=== PATIENT | male | born 1975 | race Caucasian/White ===

== ENCOUNTER → 2016-08-14 | Outpatient (CLI) | payer OTHER | LOC: CAT 10:22 | DX: R10.9 Unspecified abdominal pain (principal) ==

== ENCOUNTER → 2018-12-13 | Outpatient (CLI) | payer BC ==
--- NOTE | 2018-12-13 09:05 | EXE ---
[facility] [place] [address] STRESS ECHOCARDIOGRAM Name: CHANDANA MCFADDEN Room #: REG [facility]#: [id number] ������������� Admission: 12/13/18 ������������� Attend Phys: Arnav Larkin MD Discharge: ��� ������������� ��� Date of : 73 Date of Service: 12/13/18904 �� Report #: [id number] �������� ��������������������������������������������[id number] THIS REPORT FOR: //name// APPROVED REPORT Study performed: 12/13/2018 07:59:47 Exam: Stress Echocardiogram Indication: Chest pain Patient Location: Out-Patient Stress Nurse: Rupa Flores RN Status: routine Ht: 6 ft 1 in Rhythm: NSR Medical History Medical History: CABG Allergies: No known drug allergies Procedure The patient underwent an Exercise Stress Test using the Steven Protocol. Blood pressure, heart rate, and EKG were monitored. An Echocardiogram was performed by geologic technician in four stages in quad fashion. At peak stress, four selected images were obtained and placed side by side with resting images for comparison. Stress Test Details Stress Test: Exercise stress testing was performed using a Steven protocol. HR Resting HR: 68 bpm Max Heart Rate (APMHR): 176 bpm Max HR Achieved: 176 bpm Target HR (85% APMHR): 149 bpm % of APMHR: 100 Recovery HR: 106 bpm HR response to stress: Normal HR response to stress BP Resting BP: 168/72 mmHg Max BP: 168/80 mmHg Recovery BP: 144/80 mmHg BP response to stress: Normal blood pressure response to stress. ECG Resting ECG: Sinus Rhythm [facility] [address] [place] [address] STRESS ECHOCARDIOGRAM Name: CHANDANA MCFADDEN Room #: REG [facility]#: [id number] ������������� Admission: 12/13/18 ������������� Attend Phys: Arnav Larkin MD Discharge: ��� ������������� ��� Date of : 73 Date of Service: 12/13/18 0905 �� Report #: [id number] �������� ��������������������������������������������[id number] Stress ECG: Sinus Rhythm, nonspecific ST-T abnormalities ST Change: Non-ischemic Clinical Reason for Termination: Completed protocol Stress Symptoms: Fatigue Exercise duration: 9 min 19 sec Highest Stage Achieved: Stage 4: 4.2 mph at 16% grade. Exercise capacity: 11.10 METs Pre-Stress Echo The resting Echocardiogram showed normal left ventricular contractility with an estimated Ejection Fraction of about 55-60%. The resting echocardiogram demonstrated normal wall motion in all wall segments. Normal wall motion in all segments on baseline images. Post-Stress Echo The stress Echocardiogram showed normal left ventricular contractility with an estimated Ejection Fraction of about >70%. Compared to rest, there were no stress-induced wall motion abnormalities. Normal augmentation of wall motion in all segments on post stress images. Clinical No clinical or ECG evidence for ischemia. Conclusion Clinical Response: Non-ischemic Exercise Capacity: Average Stress ECG Response: Non-ischemic Stress Echo Images: Non-ischemic The left ventricle is normal in size and wall thickness in both the rest and stress images. Other Information Study Quality: Adequate <Conclusion> The left ventricle is normal in size and wall thickness in both the rest and stress images. ��������������������������������������������� <ELECTRONICALLY SIGNED> ���������������������������������������� By: Arnav Larkin MD ��������������������������������������������� 12/13/18904 4 4 Arnav Larkin MD /INF
== END ==
LOC: CV 07:28
DX: R07.9 Chest pain, unspecified (principal); Z95.1 Presence of aortocoronary bypass graft

== ENCOUNTER → 2019-01-25 | Outpatient (CLI) | payer OTHER | LOC: CAT 12:02 | DX: R07.2 Precordial pain (principal); Z95.5 Presence of coronary angioplasty implant and graft ==

== ENCOUNTER → 2019-04-20 | Outpatient (CLI) | payer OTHER | LOC: MRI 08:29 | DX: M50.123 Cervical disc disorder at C6-C7 level with radiculopathy (principal); M48.02 Spinal stenosis, cervical region; M25.78 Osteophyte, vertebrae; M50.122 Cervical disc disorder at C5-C6 level with radiculopathy ==

== ENCOUNTER 2019-05-29 09:54 | Emergency (ER) | payer OTHER ==
[~2019-05-29] VITALS: Ht 185.4 cm; Wt 104.3 kg
[2019-05-29] MEDS ORDERED: ASA81BEC PO (10:08)
[2019-05-29] MEDS ORDERED: NEURONTIN300 MG PO (10:09)
[2019-05-29] MEDS ORDERED: MEDROLDOSEPACK PO (10:37)
[2019-05-29] MEDS ORDERED: CYCLOBENZAPRINE5 MG PO (10:37)
[2019-05-29] MEDS ORDERED: NORCO 10-325 T1 EAC1 PO (10:37)
[2019-05-29] MEDS ORDERED: VALIUM5 MG PO (12:38)
[2019-05-29 12:41] VITALS: BP 119/76
== END 2019-05-29 12:42 | disposition home or self-care (01) ==
LOC: ER 09:54
DX: M54.12 Radiculopathy, cervical region (principal); F41.9 Anxiety disorder, unspecified

== ENCOUNTER 2019-06-08 09:03 | Day surgery (SDC) | payer OTHER ==
[2019-06-07 12:28] LABS: ABSOLUTE NEUTROPHILS 7.2 thou/uL (1.4-8.2); BASOPHILS 0.4 % (0.0-2.0); EOSINOPHILS 1.1 % (0.0-3.0); HEMATOCRIT 48.4 % (42.0-52.0); HEMOGLOBIN 16.2 gm/dL (14.0-18.0); MCH 32.4 pg (26.0-34.0); MCHC 33.5 g/dL (28.0-37.0); MCV 96.9 fL (80.0-100.0); MONOCYTES 10.7 % (1.0-8.0); PLATELET COUNT 255 thou/uL (150-400); POLYS 69.8 % (36.0-66.0); RDW 14.2 % (10.5-14.5); WBC 10.4 thou/uL (4.0-11.0)
[2019-06-07 13:08] LABS: ALBUMIN 4.2 g/dL (3.4-5.0); CALCIUM 9.1 mg/dL (8.5-10.1); CREATININE 1.1 mg/dL (0.7-1.3); POTASSIUM 4.2 mmol/L (3.5-5.1); TOTAL BILIRUBIN 0.5 mg/dL (<0.1-1.0); TOTAL PROTEIN 7.8 g/dL (6.4-8.2)
[~2019-06-08] VITALS: Ht 185.4 cm; Wt 103.0 kg
[~2019-06-08 09:03] MED LIST: ASA81BEC PO; CYCLOBENZAPRINE5 MG PO; MEDROLDOSEPACK PO; NEURONTIN300 MG PO; NORCO 10-325 T1 EAC1 PO; PERCOCET 10-321 EAC1 PO; VALIUM5 MG PO
[2019-06-08 09:43] VITALS: BP 139/81
--- NOTE | 2019-06-08 11:13 | H ---
[facility] [place] [address] HISTORY AND PHYSICAL Name: CHANDANA MCFADDEN Room #: REG [facility].#: [id number] Admission: 06/08/19 Attend Phys: Soren Jones MD Discharge: Date of : 73 Report #: [id number] THIS REPORT FOR: //name// CC: Soren Coats DATE OF SERVICE: 06/08/2019 HISTORY OF PRESENT ILLNESS: The patient is a pleasant 44-year-old who is having difficulty with neck and left arm pain. He says most of his pain is in his arm. The pain radiates from his neck to the left scapula, biceps, and forearm. He has numbness and tingling in the thumb and index finger on the left hand. He has no pain in the right arm. He says his left arm feels weak. He said that the problem began in February and then he received a cervical epidural steroid injection, which helped him improve about 80%. He said that last Thursday, he had a haircut and his head was tilted back and he developed severe neck and left arm pain again. He rates his pain 9/10 at its worst. The pain is constant. There is no position that is comfortable for him. Stretches help him minimally. He did have another epidural steroid injection last week with very minimal relief for 1 day. He is currently taking Percocet, gabapentin, Valium and he has also been to the Emergency Room for this problem. MEDICATIONS: Prednisone, Percocet, gabapentin, Valium. ALLERGIES: BEES. PAST MEDICAL HISTORY: Coronary artery disease. PAST SURGICAL HISTORY: Left ACL repair, left wrist surgery, coronary artery bypass graft 2018, sternoplasty 2019. SOCIAL HISTORY: He is employed as a PA. . Nonsmoker. Rarely drinks alcohol. REVIEW OF SYSTEMS: A 12-point review of systems was performed and is noncontributory except that mentioned above. PHYSICAL EXAMINATION: GENERAL: Alert, pleasant, in no acute distress. HEENT: Normocephalic, atraumatic. NECK: Moderate tenderness with palpation of the posterior cervical region. SKIN: Warm and dry. MUSCULOSKELETAL: Cervical paraspinal muscle bulk is normal, cervical range of motion is restricted, normal range of motion of the upper extremities bilaterally. EXTREMITIES: No clubbing, cyanosis or edema. [address] [address] HISTORY AND PHYSICAL Name: CHANDANA MCFADDEN Room #: REG [facility]#: [id number] Admission: 06/08/19 Attend Phys: Soren Jones MD Discharge: Date of : 73 Report #: [id number] NEUROLOGIC: Alert and oriented x 3, normal recent and remote memory, strength is 5/5 in the upper and lower extremities except the left triceps is 4+/5, sensory was intact to light touch in the upper and lower extremities except decreased sensation in the left index finger, reflexes were present and symmetric in the upper and lower extremities bilaterally, normal gait. IMAGING: I reviewed a cervical MRI scan from 04/2019. On that study, there is left sided disk bulge and foraminal narrowing at C3-C4. At C6-C7, there is bilateral foraminal narrowing, slightly worse on the right. ASSESSMENT AND PLAN: Based on his exam, I believe the problems at C6-C7 on the left are responsible for his severe cervical radiculopathy. He has been referred and had a second cervical epidural steroid injection with no significant improvement. I spoke with him about anterior cervical surgery at C6-C7. We spoke about the technique, risk and expected postoperative course. He understands and would like to go ahead. We are going to make the arrangements. <ELECTRONICALLY SIGNED> By: Soren Jones MD 06/08/19 1113 1156 1218 Soren Jones MD /nt
[2019-06-08 20:21] VITALS: BP 127/86
[2019-06-09] VITALS: BP 119/85
[2019-06-09 00:05] VITALS: BP 119/85
[2019-06-09 03:05] VITALS: BP 126/88
[2019-06-09 07:40] VITALS: BP 126/75
[2019-06-09] MEDS ORDERED: TIZANIDINE4 MG/1 TA1 PO (10:29)
[2019-06-09] MEDS ORDERED: PERCOCET 10-321 EACH PO (10:29)
[2019-06-09 11:00] VITALS: BP 120/83
[2019-06-09 11:26] VITALS: BP 126/75
--- NOTE | 2019-06-27 15:51 | O ---
[facility] [place] [address] OPERATIVE REPORT Name: CHANDANA MCFADDEN Room #: DEP [facility].#: [id number] Admission: 06/08/19 Attend Phys: Soren Jones MD Discharge: 06/09/19 Date of : 73 Report #: [id number] THIS REPORT FOR: cc: Deepak Coats MD, Neal A. MD Holladay, Frank P. MD ~ CC: Soren Coats DATE OF SERVICE: 06/08/2019 PREOPERATIVE DIAGNOSIS: Severe cervical radiculopathy, C6-C7. POSTOPERATIVE DIAGNOSIS: Severe cervical radiculopathy, C6-C7. OPERATION PERFORMED: Anterior cervical microdiscectomy C6-C7, anterior cervical interbody fusion C6-C7 with allograft bone and anterior cervical plate C6-C7. The operation was done with EMG monitoring, SSEP monitoring, motor evoked potentials, fluoroscopy, microscopic dissection. SURGEON: Soren Jones M.D. PRODUCTION SHIFT SUPERVISOR: Rocío Zhu APRN assisted with the surgery. She assisted with exposure, discectomy, fusion and closure. OPERATIVE INDICATIONS: The patient is a pleasant 44-year-old who developed severe intractable left arm pain in a radicular fashion along with left triceps weakness and numbness in his index and middle fingers on the left side. On imaging studies, there was severe foraminal narrowing at C6-C7 on the left. He also had some problems at C3-C4 on the left, but I did not think these were clinically significant. I have recommended an anterior cervical microdiscectomy and fusion at C6-C7 after he failed to improve with epidural steroid injections. He understood the surgery and risks. He wished to go ahead. DESCRIPTION OF PROCEDURE: Following general endotracheal anesthesia, the patient was positioned supine on the operating room table in a neutral position. The anterior cervical region was then prepped and draped in a standard fashion. Monitoring was established. Ancef 2 grams were given less than 1 hour prior to initiation of the surgery. The microscope was draped. Fluoroscopy was draped and brought into the field. Using fluoroscopic guidance, incision was made from the midline around on the right side and the skin crease. I dissected down through skin and subcutaneous tissue. I sharply divided the platysma. I dissected around the medial aspect of the sternocleidomastoid and carotid artery sheath down to the anterior cervical vertebral bodies. I checked [address] [address] OPERATIVE REPORT Name: CHANDANA MCFADDEN [id number] Admission: 06/08/19 Attend Phys: Soren Jones MD Discharge: 06/09/19 Date of : 73 Report #: [id number] my position and palpated the anterior cervical region. I gently retracted medially and placed the anterior cervical retractors wedged in the longus colli muscles. I placed 14 mm pins in C6 and C7. I confirmed my position fluoroscopically and I brought in the microscope at this time and the remainder of the surgery was done with the microscope using microscopic technique. I made an incision in the C6-C7 disc with a #11 blade anteriorly. I distracted the disc space and performed discectomy pituitary rongeurs. I drilled the bone spurs and drilled the posterior spurring with a high speed air drill. After thoroughly performing a discectomy then and scraping cartilaginous endplate, I trimmed the osteophytic spurring posteriorly. I opened the annulus and the posterior longitudinal ligament, the ligament I opened with an arachnoid knife. I worked laterally bilaterally to assure myself that the foramina were opened and was easily able to pass a blunt hook out through the neural foramen. I placed an anterior cage, which was packed with allograft bone. This was gently tapped into position and a plate from the Bass Manager and used four 14 mm screws, which were then locked. I removed the retractor. I obtained hemostasis. Imaging looked perfect. Monitoring was stable throughout. I closed the wound with absorbable sutures. The platysma was closed in a separate layer. The skin was closed with 4-0 subcuticular stitch. The operation went very well. The patient was awakened uneventfully with marked improvement in his left arm pain. I was quite pleased with the surgery. <ELECTRONICALLY SIGNED> By: Soren Jones MD 06/27/19 1551 [id number] 1543 Soren Jones MD /nt
== END 2019-06-09 12:52 | disposition home or self-care (01) ==
LOC: OR 09:03 → TBA 17:50 → 2N 19:18 → ENTRNSPT 06-09 12:37 → EDTRNSPTSTS 06-09 12:42 → OR 06-09 12:52
PROVIDERS: Neurological Surgery
DX: M54.12 Radiculopathy, cervical region (principal); M48.02 Spinal stenosis, cervical region; I25.10 Atherosclerotic heart disease of native coronary artery without angina pectoris; F41.9 Anxiety disorder, unspecified; Z98.890 Other specified postprocedural states; Z95.1 Presence of aortocoronary bypass graft; Z79.899 Other long term (current) drug therapy; Z79.82 Long term (current) use of aspirin
CPT/HCPCS: 50010; 50101; 50144; 50402; 50455; 50503; 50515; 51687; 51779; 53210; 54118; 55106; 55430; 56528; 56529; 56805; 62110; 62900; 65131; 70005

== ENCOUNTER → 2019-09-07 | Outpatient (CLI) | payer OTHER ==
[~2019-09-07] MED LIST changes: +PERCOCET 10-321 EACH PO; +TIZANIDINE4 MG/1 TA1 PO
== END ==
LOC: RAD 09:18
DX: M50.323 Other cervical disc degeneration at C6-C7 level (principal); Z98.1 Arthrodesis status

== ENCOUNTER → 2020-11-23 | Outpatient (CLI) | payer OTHER | LOC: CAT 11:31 | PROVIDERS: ATTEND Family Medicine | DX: J98.4 Other disorders of lung (principal); R07.89 Other chest pain; R07.2 Precordial pain ==

== ENCOUNTER → 2020-11-30 | Outpatient (CLI) | payer OTHER | LOC: ULTRA 14:21 | PROVIDERS: ATTEND Family Medicine | DX: R10.13 Epigastric pain (principal) ==

== ENCOUNTER → 2021-01-03 | Outpatient (CLI) | payer OTHER ==
[~2021-01-03] MED LIST changes: +QUERCETIN DIHYDR1 GM PO; +VITAMIN C500 M1 PO; +VITAMIN D325 MC3 PO; +ZINC50 M3 PO
[2021-01-03 13:47] LABS: ABSOLUTE NEUTROPHILS 3.4 thou/uL (1.4-8.2); BASOPHILS 0.6 % (0.0-2.0); EOSINOPHILS 1.8 % (0.0-3.0); HEMATOCRIT 43.9 % (42.0-52.0); HEMOGLOBIN 14.8 gm/dL (14.0-18.0); LYMPHOCYTES 31.8 % (24.0-44.0); MCH 32.1 pg (26.0-34.0); MCHC 33.7 g/dL (28.0-37.0); MCV 95.4 fL (80.0-100.0); MONOCYTES 9.9 % (1.0-8.0); PLATELET COUNT 224 thou/uL (150-400); POLYS 55.9 % (36.0-66.0); RBC 4.61 mil/uL (4.50-6.00); RDW 13.2 % (10.5-14.5); WBC 6.1 thou/uL (4.0-11.0)
[2021-01-03 14:02] LABS: CALCIUM 8.2 mg/dL (8.5-10.1); CREATININE 1.2 mg/dL (0.7-1.3); POTASSIUM 4.1 mmol/L (3.5-5.1); TOTAL BILIRUBIN 0.7 mg/dL (0.2-1.0); TOTAL PROTEIN 7.3 g/dL (6.4-8.2)
[2021-01-03 14:03] LABS: APTT 29.6 Seconds (24.5-32.8); INR 1.03; PROTIME 11.2 Seconds (10.5-12.1)
[2021-01-03 14:04] LABS: URINE BILIRUBIN NEGATIVE (Negative); URINE BLOOD NEGATIVE (Negative); URINE CLARITY CLEAR; URINE COLOR YELLOW; URINE GLUCOSE-RANDOM* NEGATIVE (Negative); URINE KETONES NEGATIVE (Negative); URINE LEUKOCYTES-REFLEX NEGATIVE (Negative); URINE NITRITE-REFLEX NEGATIVE (Negative); URINE PROTEIN (DIPSTICK) NEGATIVE (Negative); URINE SPECIFIC GRAVITY >= 1.030 (1.005-1.035); URINE UROBILINOGEN 0.2 E.U./dl (0.2-1.0)
--- NOTE | 2021-01-04 07:26 | EKG ---
[place] [address] [facility] [place] [address] ELECTROCARDIOGRAM REPORT Name: CHANDANA MCFADDEN Room #: REG [facility]#: [id number] Admission: 01/03/21 Attend Phys: Adriel Zambrano MD Discharge: Date of : 73 Report #: [id number] [facility] Test Date: 2021-01-03 Test Time: 13:37:23 Pat Name: CHANDANA MCFADDEN Department: Room: Gender: Transformation Specialist: [facility] : 1975 Requested By: Adriel Zambrano Order Number: [id number] : Yobany Martínez Measurements Intervals [place] Rate: 80 P: 42 WV: 154 QRS: 47 QRSD: 98 T: 53 QT: 377 QTc: 435 Interpretive Statements Sinus rhythm Abnormal R-wave progression, early transition Baseline wander in lead(s) III,aVL No previous ECG available for comparison Electronically Signed On 01-04-2021 7:25:59 CDT by Yobany Martínez [email or web address] <ELECTRONICALLY SIGNED> By: Yobany Martínez MD, [facility] 01/04/21 0725 D: 08/1336 36 Yobany Martínez MD, FACC /EPI
== END ==
LOC: PAC 10:45
PROVIDERS: ATTEND Surgery Vascular Surgery
DX: Z01.818 Encounter for other preprocedural examination (principal); R94.31 Abnormal electrocardiogram [ECG] [EKG]; G89.18 Other acute postprocedural pain; R07.89 Other chest pain; Z91.048 Other nonmedicinal substance allergy status

== ENCOUNTER → 2021-01-09 | Outpatient (CLI) | payer OTHER | LOC: LAB 13:28 | PROVIDERS: ATTEND Student in an Organized Health Care Education/Training Program | DX: Z01.812 Encounter for preprocedural laboratory examination (principal); Z20.822 Contact with and (suspected) exposure to COVID-19 ==